=== PATIENT | female | born 1985 | race American Indian/Alaskan Native ===

== ENCOUNTER → 2017-10-07 | Emergency (ER) | payer OTHER ==
[2017-10-07 04:38] VITALS: BP 143/85
[2017-10-07 05:08] LABS: Bilirubin,Urine NEG (Negative); Blood,Urine SM (Negative); Color,Urine Yellow (Yellow); Hyaline Casts,Urine 1 /LPF; Mucus,Urine FEW /HPF; Protein,Urine <15 mg/dL mg/dL (Negative); Urobilinogen,Urine < 2.0 mg/dL (<2.0)
[2017-10-07 05:19] LABS: HCG Qualitative,Urine Negative (Negative)
== END | disposition left against medical advice (07) ==
LOC: ED 01:20
DX: R11.2 Nausea with vomiting, unspecified (principal); Z53.21 Procedure and treatment not carried out due to patient leaving prior to being seen by health care provider
CPT/HCPCS: 81001; 81025